=== PATIENT | male | born 1995 | race Caucasian/White ===

== ENCOUNTER 2019-07-25 05:23 | Emergency (ER) | payer OTHER ==
[~2019-07-25] VITALS: Ht 177.8 cm; Wt 156.9 kg
[2019-07-25 05:31] VITALS: Ht 177.8 cm; Wt 156.9 kg
[2019-07-25 06:38] VITALS: BP 128/77
== END 2019-07-25 06:37 | disposition home or self-care (01) ==
LOC: ED 05:23
DX: M54.41 Lumbago with sciatica, right side (principal); M54.16 Radiculopathy, lumbar region; Z90.89 Acquired absence of other organs
CPT/HCPCS: J1885